=== PATIENT | male | born 2000 | race Two or more races ===

== ENCOUNTER 2025-04-15 00:52 | Emergency (ER) | payer SELFPAY ==
[2025-04-15 00:56] VITALS: BP 151/97; PULSE 113; RESP 18; TEMP 36.7; O2SAT 97; BMI 34.9
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
== END 2025-04-15 01:50 ==
LOC: SERX 01:52
PROVIDERS: Emergency Provider Emergency Medicine
DX: Z04.1 Encounter for examination and observation following transport accident (principal); Z02.89 Encounter for other administrative examinations
CPT/HCPCS: 99282